=== PATIENT | male | born 1975 | race Caucasian/White ===

== ENCOUNTER 2016-07-17 10:16 | Emergency (ER) | payer SELFPAY ==
--- NOTE | 2016-07-17 10:59 | ED.PDOC ---
History of Present Illness - General Chief Complaint: Eye Problems Stated Complaint: Foreign Body in R Eye Time Seen by Provider: 07/17/16 10:22 Source: patient, RN notes reviewed, Vital Signs reviewed Exam Limitations: no limitations - History of Present Illness Initial Comments: Patient reports he got metal in his right eye on Tuesday, 5 days ago. He flushed most of it out with eye flush but there is still a piece in his R eye that he can't get out. Timing/Duration: abrupt, other - 5 days ago Severity: mild EENT Location: eye (R) Prearrival Treatment: flushing eyes Improving Factors: nothing Worsening Factors: nothing Associated Symptoms: denies symptoms Allergies/Adverse Reactions: Allergies NO KNOWN ALLERGY Allergy (Verified 07/17/16 10:51) Home Medications: Ambulatory Orders Naproxen [Naprosyn] 500 mg PO Q12HR PRN 07/17/16 Review of Systems - Review of Systems Constitutional: States: no symptoms reported EENTM: States: see HPI, eye pain. Denies: blurred vision, double vision Respiratory: States: no symptoms reported Cardiology: States: no symptoms reported All other Systems: No Change from Baseline Physical Exam - Physical Exam General Appearance: Alert, Comfortable, No apparent distress, Well Developed, Well Groomed, Well Hydrated, Well Nourished Eye Exam: right other - Small piece or metal in R eye @~1:00 on cornea Nasal Exam: normal inspection Neck: non-tender, full range of motion, supple Neurologic: alert, normal mood/affect, oriented x 3 Skin Exam: normal color, warm/dry Procedures - Eye Procedure Right Alcaine Drops Administered: Yes FB Removal from Eye Procedure: with chasity drill Cyclogel 2 Drops Administered: No Antibiotic Oinment/Drps Admin: Gentamycin Opth drops Progress: Tolerated well Departure - Departure Clinical Impression: Corneal abrasion Qualifiers: Encounter type: initial encounter Laterality: right Qualified Code(s): S05.01XA - Injury of conjunctiva and corneal abrasion without foreign body, right eye, initial encounter Acute foreign body of right cornea Qualifiers: Encounter type: initial encounter Qualified Code(s): T15.01XA - Foreign body in cornea, right eye, initial encounter Time of Disposition: 11:02 Disposition: Discharge to Home or Self Care Condition: Good Departure Forms: ED Discharge - Pt. Copy, Patient Portal Self Enrollment Instructions: KIMANI for Corneal Foreign Body-Eye, DI for Corneal Abrasion Diet: resume usual diet Activity: increase activity as tolerated Home Medications: Ambulatory Orders Naproxen [Naprosyn] 500 mg PO Q12HR PRN 07/17/16 Additional Instructions: Apply Gentamycin drops 1 drop in R eye every 4 hours while awake. Follow up with [facility] in 5-7 days to recheck healing, sooner if new or worsening symptoms.
[2016-07-17 11:11] VITALS: BP 137/92; TEMP 98.6; O2SAT 94
[2016-07-17] MEDS ORDERED: GENTAMICIN OPTH SOL 0.3% 5ML BOTTLE OPHTH ONE (12:00)
[2016-07-17] MEDS ORDERED: TETRACAINE HCL 0.5% 4 ML BTTL OPHTH ONE (12:00)
== END 2016-07-17 11:25 | disposition home or self-care (01) ==
LOC: ER 10:16
DX: T15.01XA Foreign body in cornea, right eye, initial encounter (principal); X58.XXXA Exposure to other specified factors, initial encounter